=== PATIENT | male | born 1945 | race Caucasian/White ===

== ENCOUNTER 2016-05-03 02:09 | Inpatient (IN) | payer OTHER ==
[~2016-05-03] VITALS: Ht 180.3 cm; Wt 129.3 kg
[~2016-05-03 02:09] MED LIST: ALLOPURINOL100 MG PO; ASPIR-LOW81 MG PO; ASPIRIN325 MG PO; ATORVASTATIN CA80 MG PO; CALCITRIOL0.25 MCG PO; CHLORTHALIDONE25 MG PO; CLONIDINE HCL0.1 MG PO; EFFIENT10 MG PO; HYGROTON25 MG PO; INDOCIN50 MG PO; LANTUS 3 M100 UNITS1 SC; MUCOMYST 20200 MG/ML PO; NOVOLOG 10100 UNITS/ SC; NOVOLOG PE100 UNITS/ SC; OMEPRAZOLE20 MG PO; TELMISARTAN80 MG PO; TOPROL XL100 MG PO; VITAMIN D-32000 UNI2 PO
[2016-05-03] MEDS ORDERED: VITAMIN D2000 UNI1 PO (02:41)
[2016-05-03] MEDS ORDERED: RANEXA1000 MG PO (02:42)
[2016-05-03] MEDS ORDERED: OLMESARTAN-HCT1 EAC2 PO (02:42)
[2016-05-03] MEDS ORDERED: LORAZEPAM0.5 MG PO (02:44)
[2016-05-03 03:17] LABS: HEMATOCRIT 33.5 % (38.0-50.0); MCH 28.1 PG (29.0-34.0); MCHC 33.1 G/DL (30.0-36.0); MCV 84.8 FL (86-99); MEAN PLAT.VOLUME 9.7 uM^3 (9.0-12.4); PLATELET COUNT 150 K/uL (156-360); RBC DIS.WIDTH-CV 12.9 % (11.8-14.6); RBC DIS.WIDTH-SD 38.9 % (39-53); RED BLOOD COUNT 3.95 M/uL (4.00-5.50); WHITE BLOOD COUNT 3.5 K/uL (4.1-10.2)
[2016-05-03 03:28] LABS: CHLORIDE 106 mEq/L (99-109)
[2016-05-03 03:29] LABS: POTASSIUM 3.8 mEq/L (3.7-5.4); SODIUM 139 mEq/L (136-147)
[2016-05-03 03:30] LABS: GLUCOSE 346 mg/dL (70-99)
[2016-05-03 03:31] LABS: D-DIMER ELISA 0.31 mg/L FEU (< 0.57); PROTHROMBIN TIME 10.2 (9.2-11.2); PTT 25.1 (25-32)
[2016-05-03 03:32] LABS: ANION GAP 13 MEQ/L (2-14)
[2016-05-03 03:34] LABS: GFR ESTIMATE (CALCULATED) 40 mL/min/
[2016-05-03 03:35] LABS: UREA NITROGEN (BUN) 28 mg/dL (9-23)
[2016-05-03 03:38] LABS: TROP-I INTERPRETATION NEGATIVE; TROPONIN-I 0.01 ng/mL (0.0-0.30)
[2016-05-03 10:23] LABS: TROP-I INTERPRETATION INDETERMINATE; TROPONIN-I 0.37 ng/mL (0.0-0.30)
[2016-05-03 11:12] LABS: ANION GAP 9 MEQ/L (2-14); CHLORIDE 105 MEQ/L (99-109); GFR ESTIMATE (CALCULATED) 45 mL/min/; GLUCOSE 199 mg/dL (70-99); POTASSIUM 4.2 MEQ/L (3.7-5.4); SAMPLE HEMOLYSIS CHECK 0; SAMPLE ICTERIC CHECK 0; SAMPLE LIPEMIA CHECK 0; SODIUM 142 MEQ/L (136-147); UREA NITROGEN (BUN) 26 mg/dL (9-23)
[2016-05-03 12:19] LABS: PROTHROMBIN TIME 10.6 (9.2-11.2); PTT 24.8 (25-32)
[2016-05-03 12:52] VITALS: BP 125/80
[2016-05-03 12:59] LABS: POINT-OF-CARE METER ID UU14162513
[2016-05-03 16:09] LABS: TROP-I INTERPRETATION INDETERMINATE; TROPONIN-I 0.52 ng/mL (0.0-0.30)
[2016-05-03 17:04] VITALS: BP 174/78
[2016-05-03 17:46] LABS: POINT-OF-CARE METER ID UU14162513
[2016-05-03 20:00] VITALS: BP 160/82
[2016-05-03 20:22] LABS: TROP-I INTERPRETATION INDETERMINATE; TROPONIN-I 0.43 ng/mL (0.0-0.30)
[2016-05-03 21:57] LABS: POINT-OF-CARE METER ID UU14162513
[2016-05-04] VITALS (10 sets, daily range): BP systolic 144–223; BP diastolic 54–98
[2016-05-04 03:01] LABS: TROP-I INTERPRETATION NEGATIVE; TROPONIN-I 0.24 ng/mL (0.0-0.30)
[2016-05-04 08:03] LABS: POINT-OF-CARE METER ID UU13113696; POINT-OF-CARE USER ID AHSHCPRMS
[2016-05-04 08:04] LABS: INTERNAL CONTROL VALID? YES
[2016-05-04 21:34] LABS: POINT-OF-CARE METER ID UU13113698
[2016-05-05 04:00] VITALS: BP 171/74
[2016-05-05 06:18] LABS: ANION GAP 8 MEQ/L (2-14); CHLORIDE 104 MEQ/L (99-109); GFR ESTIMATE (CALCULATED) 42 mL/min/; GLUCOSE 120 mg/dL (70-99); SAMPLE HEMOLYSIS CHECK 0; SAMPLE ICTERIC CHECK 0; SAMPLE LIPEMIA CHECK 0; SODIUM 138 MEQ/L (136-147); UREA NITROGEN (BUN) 26 mg/dL (9-23)
[2016-05-05 06:22] LABS: EOSINOPHIL (%) 1.1 % (0-5); EOSINOPHIL COUNT 0.1 K/uL (0-0.3); HEMATOCRIT 32.3 % (38.0-50.0); IMMATURE GRANULOCYTE (%) 1.9 % (0.0-0.7); IMMATURE GRANULOCYTE COUNT 0.1 K/uL; LYMPHOCYTE COUNT 0.7 K/uL (1.0-2.8); MCH 27.9 PG (29.0-34.0); MCHC 32.8 G/DL (30.0-36.0); MEAN PLAT.VOLUME 9.8 uM^3 (9.0-12.4); MONOCYTE (%) 8.2 % (3-12); MONOCYTE COUNT 0.4 K/uL (0-0.8); NEUTROPHIL (%) 75.8 % (45-76); PLATELET COUNT 161 K/uL (156-360); RBC DIS.WIDTH-CV 13.2 % (11.8-14.6); RBC DIS.WIDTH-SD 40.6 % (39-53)
[2016-05-05 06:48] LABS: WHITE BLOOD COUNT 5.2 K/uL (4.1-10.2)
[2016-05-05 07:14] VITALS: BP 160/90
[2016-05-05 12:00] VITALS: BP 170/70
[2016-05-05] MEDS ORDERED: BRILINTA90 MG PO (13:58)
[2016-05-05] MEDS ORDERED: ASPIR-LOW81 MG PO (13:58)
== END 2016-05-05 15:24 | disposition home or self-care (01) | DRG 228 ==
LOC: EME → EDBD 02:09 → EME 02:09 → EDOF 05:31 → 5WEST 07:16 → 4EAST 11:13 → 5WEST 11:13 → 4EAST 23:48
PROVIDERS: Emergency Medicine; Family Medicine; Hospitalist; Internal Medicine
DX: T82.867A Thrombosis due to cardiac prosthetic devices, implants and grafts, initial encounter (principal); I21.4 Non-ST elevation (NSTEMI) myocardial infarction; D61.818 Other pancytopenia; N17.9 Acute kidney failure, unspecified; J98.11 Atelectasis; Z68.41 Body mass index [BMI] 40.0-44.9, adult; D72.819 Decreased white blood cell count, unspecified; E66.01 Morbid (severe) obesity due to excess calories; E78.5 Hyperlipidemia, unspecified; Z87.891 Personal history of nicotine dependence; I13.10 Hypertensive heart and chronic kidney disease without heart failure, with stage 1 through stage 4 chronic kidney disease, or unspecified chronic kidney disease; N18.9 Chronic kidney disease, unspecified; I25.118 Atherosclerotic heart disease of native coronary artery with other forms of angina pectoris; E11.22 Type 2 diabetes mellitus with diabetic chronic kidney disease; Y83.2 Surgical operation with anastomosis, bypass or graft as the cause of abnormal reaction of the patient, or of later complication, without mention of misadventure at the time of the procedure
CPT/HCPCS: 71020; 80048; 80048 91; 82948; 83605; 83880; 84484; 85025; 85027; 85347; 85379; 85610; 85730; 87040; 87449; 93005; 99281; 99284; C1725; C1760; C1769; C1874; C1887; C1894; J0360; J1644; J1815; J1956; J2060; J2250; J2405; J3010; J7030

== ENCOUNTER 2016-08-10 23:04 | Emergency (ER) | payer OTHER ==
[~2016-08-10] VITALS: Ht 180.3 cm; Wt 124.5 kg
[~2016-08-10 23:04] MED LIST changes: +BRILINTA90 MG PO; +LORAZEPAM0.5 MG PO; +OLMESARTAN-HCT1 EAC2 PO; +RANEXA1000 MG PO; +VITAMIN D2000 UNI1 PO
[2016-08-10 23:24] VITALS: BP 196/75
[2016-08-10 23:52] LABS: HEMATOCRIT 32.4 % (38.0-50.0); MCH 27.7 PG (29.0-34.0); MCHC 32.7 G/DL (30.0-36.0); MCV 84.6 FL (86-99); MEAN PLAT.VOLUME 10.3 uM^3 (9.0-12.4); PLATELET COUNT 174 K/uL (156-360); RBC DIS.WIDTH-CV 12.8 % (11.8-14.6); RED BLOOD COUNT 3.83 M/uL (4.00-5.50)
[2016-08-11 00:14] LABS: TROP-I INTERPRETATION NEGATIVE; TROPONIN-I 0.03 ng/mL (0.0-0.30)
[2016-08-11 00:26] LABS: CHLORIDE 107 mEq/L (99-109); POTASSIUM 4.6 mEq/L (3.7-5.4)
[2016-08-11 00:27] LABS: SODIUM 139 mEq/L (136-147)
[2016-08-11 00:28] LABS: GLUCOSE 381 mg/dL (70-99)
[2016-08-11 00:30] LABS: ANION GAP 8 MEQ/L (2-14)
[2016-08-11 00:32] LABS: GFR ESTIMATE (CALCULATED) 35 mL/min/
[2016-08-11 00:52] LABS: UREA NITROGEN (BUN) 44 mg/dL (9-23)
== END 2016-08-11 01:15 | disposition left against medical advice (07) ==
LOC: EME 23:04
DX: R07.9 Chest pain, unspecified (principal); Z53.21 Procedure and treatment not carried out due to patient leaving prior to being seen by health care provider
CPT/HCPCS: 71020; 80048; 84484; 85027; 93005

== ENCOUNTER 2016-08-13 01:52 | Observation (INO) | payer OTHER ==
[~2016-08-13] VITALS: Ht 180.3 cm; Wt 122.5 kg
[2016-08-13] MEDS ORDERED: CLONIDINE HCL0.1 MG PO (02:29)
[2016-08-13] MEDS ORDERED: LABETALOL HCL200 MG PO (02:31)
[2016-08-13 03:07] LABS: HEMATOCRIT 28.5 % (38.0-50.0); MCH 28.1 PG (29.0-34.0); MCV 85.1 FL (86-99); MEAN PLAT.VOLUME 10.4 uM^3 (9.0-12.4); PLATELET COUNT 145 K/uL (156-360); RBC DIS.WIDTH-CV 13.1 % (11.8-14.6); RBC DIS.WIDTH-SD 40.1 % (39-53); RED BLOOD COUNT 3.35 M/uL (4.00-5.50); WHITE BLOOD COUNT 4.1 K/uL (4.1-10.2)
[2016-08-13 03:15] LABS: PTT 23.1 (25-32)
[2016-08-13 03:19] LABS: CHLORIDE 109 mEq/L (99-109); POTASSIUM 3.8 mEq/L (3.7-5.4); SODIUM 139 mEq/L (136-147)
[2016-08-13 03:21] LABS: GLUCOSE 280 mg/dL (70-99)
[2016-08-13 03:22] LABS: ANION GAP 10 MEQ/L (2-14)
[2016-08-13 03:25] LABS: GFR ESTIMATE (CALCULATED) 31 mL/min/; TROP-I INTERPRETATION NEGATIVE; TROPONIN-I 0.03 ng/mL (0.0-0.30); UREA NITROGEN (BUN) 48 mg/dL (9-23)
[2016-08-13 05:14] VITALS: BP 149/68
[2016-08-13 08:20] VITALS: BP 155/70
[2016-08-13 11:18] VITALS: BP 155/73
[2016-08-13 13:03] LABS: HEMATOCRIT 28.7 % (38.0-50.0); MCH 28.5 PG (29.0-34.0); MCHC 33.1 G/DL (30.0-36.0); MCV 86.2 FL (86-99); MEAN PLAT.VOLUME 10.1 uM^3 (9.0-12.4); PLATELET COUNT 147 K/uL (156-360); RBC DIS.WIDTH-CV 13.1 % (11.8-14.6); RBC DIS.WIDTH-SD 40.6 % (39-53); RED BLOOD COUNT 3.33 M/uL (4.00-5.50); WHITE BLOOD COUNT 3.8 K/uL (4.1-10.2)
[2016-08-13 13:26] LABS: ALKALINE PHOSPHATASE 88 IU/L (3-129); ANION GAP 10 MEQ/L (2-14); CHLORIDE 107 MEQ/L (99-109); GFR ESTIMATE (CALCULATED) 40 mL/min/; GLUCOSE 199 mg/dL (70-99); POTASSIUM 4.2 MEQ/L (3.7-5.4); SAMPLE HEMOLYSIS CHECK 0; SAMPLE ICTERIC CHECK 0; SAMPLE LIPEMIA CHECK 0; SODIUM 139 MEQ/L (136-147); TOTAL BILIRUBIN 0.3 MG/DL (0.0-1.0); UREA NITROGEN (BUN) 47 mg/dL (9-23)
[2016-08-13 13:41] LABS: TROP-I INTERPRETATION NEGATIVE; TROPONIN-I 0.15 ng/mL (0.0-0.30)
[2016-08-13 15:26] VITALS: BP 160/70
[2016-08-13 18:29] LABS: TROP-I INTERPRETATION NEGATIVE; TROPONIN-I 0.14 ng/mL (0.0-0.30)
[2016-08-13] MEDS ORDERED: HUMALOG100 UNIT/2 SC (19:09)
[2016-08-13] MEDS ORDERED: ATIVAN0.5 MG PO (19:13)
[2016-08-13] MEDS ORDERED: LOW DOSE ASPIRI81 M1 PO (19:14)
[2016-08-13 19:15] VITALS: BP 217/94
[2016-08-13] MEDS ORDERED: NITROSTAT0.4 MG SL (19:15)
[2016-08-13 21:38] LABS: POINT-OF-CARE METER ID UU14162513
[2016-08-14 00:02] VITALS: BP 175/72
[2016-08-14 03:53] VITALS: BP 150/63
[2016-08-14 05:39] LABS: EOSINOPHIL (%) 2.2 % (0-5); EOSINOPHIL COUNT 0.1 K/uL (0-0.3); HEMATOCRIT 28.7 % (38.0-50.0); IMMATURE GRANULOCYTE (%) 1.9 % (0.0-0.7); IMMATURE GRANULOCYTE COUNT 0.1 K/uL; INSTRUMENT ABS NEUTROPHIL CT 2.5 K/uL; LYMPHOCYTE COUNT 0.7 K/uL (1.0-2.8); MCH 27.8 PG (29.0-34.0); MCHC 32.4 G/DL (30.0-36.0); MCV 85.7 FL (86-99); MEAN PLAT.VOLUME 10.2 uM^3 (9.0-12.4); MONOCYTE (%) 10.1 % (3-12); MONOCYTE COUNT 0.4 K/uL (0-0.8); NEUTROPHIL (%) 67.1 % (45-76); NEUTROPHIL COUNT 2.5 K/uL (1.8-6.4); PLATELET COUNT 140 K/uL (156-360); RBC DIS.WIDTH-CV 13.2 % (11.8-14.6); RBC DIS.WIDTH-SD 40.9 % (39-53); RED BLOOD COUNT 3.35 M/uL (4.00-5.50); WHITE BLOOD COUNT 3.7 K/uL (4.1-10.2)
[2016-08-14 06:12] LABS: ANION GAP 9 MEQ/L (2-14); CHLORIDE 109 MEQ/L (99-109); GFR ESTIMATE (CALCULATED) 42 mL/min/; GLUCOSE 175 mg/dL (70-99); SAMPLE HEMOLYSIS CHECK 0; SAMPLE ICTERIC CHECK 0; SAMPLE LIPEMIA CHECK 0; SODIUM 140 MEQ/L (136-147); UREA NITROGEN (BUN) 41 mg/dL (9-23)
[2016-08-14 07:35] VITALS: BP 187/77
[2016-08-14 09:27] LABS: TROP-I INTERPRETATION NEGATIVE; TROPONIN-I 0.08 ng/mL (0.0-0.30)
== END 2016-08-14 11:10 | disposition home or self-care (01) ==
LOC: EME 01:52 → EDOF 04:15 → 5WEST 04:15
PROVIDERS: Emergency Medicine; Internal Medicine
DX: R07.9 Chest pain, unspecified (principal); I25.10 Atherosclerotic heart disease of native coronary artery without angina pectoris; I10 Essential (primary) hypertension; N28.9 Disorder of kidney and ureter, unspecified; E11.8 Type 2 diabetes mellitus with unspecified complications; Z95.1 Presence of aortocoronary bypass graft; Z95.5 Presence of coronary angioplasty implant and graft; E78.00 Pure hypercholesterolemia, unspecified; Z79.4 Long term (current) use of insulin; Z88.8 Allergy status to other drugs, medicaments and biological substances
CPT/HCPCS: 71020; 80048; 80053; 82948; 84484; 85025; 85027; 85610; 85730; 93005; 99281; 99285; G0378; J0360; J1644; J1815; J7030

== ENCOUNTER 2016-09-08 10:39 | Emergency (ER) | payer OTHER ==
[~2016-09-08] VITALS: Ht 180.3 cm; Wt 124.6 kg
[~2016-09-08 10:39] MED LIST changes: +ATIVAN0.5 MG PO; +HUMALOG100 UNIT/2 SC; +LABETALOL HCL200 MG PO; +LOW DOSE ASPIRI81 M1 PO; +NITROSTAT0.4 MG SL
[2016-09-08 11:36] LABS: ADD MIUA? YES; BILIRUBIN NEGATIVE; BLOOD NEGATIVE; COLOR YELLOW ((YELLOW)); GLUCOSE (STRIP) NEGATIVE; KETONES 5; LEUKOCYTES NEGATIVE; NITRITE NEGATIVE; PROTEIN (STRIP) >=500; SPECIFIC GRAVITY 1.016 (1.000-1.030); UROBILINOGEN 0.2 MG/DL (0.2-1.0)
[2016-09-08 11:40] LABS: BACTERIA RARE /HPF; EPITHELIAL CELLS RARE /HPF; HYALINE CASTS 0-5 /LPF; MUCUS TRACE /LPF; RED BLOOD CELLS 0-5 /HPF (0-5); UCUL ADDED? NO; UNCLASSIFIED CASTS 0-5 /LPF; WHITE BLOOD CELLS 0-5 /HPF (0-5)
[2016-09-08 11:47] LABS: EOSINOPHIL (%) 2.9 % (0-5); EOSINOPHIL COUNT 0.2 K/uL (0-0.3); IMMATURE GRANULOCYTE (%) 1.9 % (0.0-0.7); IMMATURE GRANULOCYTE COUNT 0.1 K/uL; INSTRUMENT ABS NEUTROPHIL CT 3.8 K/uL; LYMPHOCYTE COUNT 0.7 K/uL (1.0-2.8); MCH 27.9 PG (29.0-34.0); MCHC 32.7 G/DL (30.0-36.0); MCV 85.5 FL (86-99); MONOCYTE (%) 6.6 % (3-12); MONOCYTE COUNT 0.3 K/uL (0-0.8); NEUTROPHIL (%) 73.8 % (45-76); NEUTROPHIL COUNT 3.8 K/uL (1.8-6.4); PLATELET COUNT 148 K/uL (156-360); RBC DIS.WIDTH-CV 13.3 % (11.8-14.6); RBC DIS.WIDTH-SD 40.2 % (39-53); RED BLOOD COUNT 3.51 M/uL (4.00-5.50); WHITE BLOOD COUNT 5.1 K/uL (4.1-10.2)
[2016-09-08 11:59] LABS: CHLORIDE 110 mEq/L (99-109); POTASSIUM 4.2 mEq/L (3.7-5.4); SODIUM 141 mEq/L (136-147)
[2016-09-08 12:01] LABS: GLUCOSE 155 mg/dL (70-99)
[2016-09-08 12:02] LABS: ANION GAP 10 MEQ/L (2-14)
[2016-09-08 12:03] LABS: TOTAL BILIRUBIN 0.4 mg/dL (0.0-1.0)
[2016-09-08 12:04] LABS: ALKALINE PHOSPHATASE 112 IU/L (3-129)
[2016-09-08 12:05] LABS: GFR ESTIMATE (CALCULATED) 42 mL/min/
[2016-09-08 12:06] LABS: UREA NITROGEN (BUN) 27 mg/dL (9-23)
[2016-09-08 12:08] LABS: LIPASE 25 U/L (1.0-51.0)
[2016-09-08] MEDS ORDERED: FLAGYL500 MG PO (13:11)
[2016-09-08] MEDS ORDERED: CIPRO500 MG PO (13:11)
[2016-09-08 13:33] VITALS: BP 165/71
== END 2016-09-08 13:33 | disposition home or self-care (01) ==
LOC: EME 10:39
PROVIDERS: Physician Assistant
DX: K57.32 Diverticulitis of large intestine without perforation or abscess without bleeding (principal); E11.9 Type 2 diabetes mellitus without complications; I25.2 Old myocardial infarction; I10 Essential (primary) hypertension; K21.9 Gastro-esophageal reflux disease without esophagitis; F41.9 Anxiety disorder, unspecified; Z85.528 Personal history of other malignant neoplasm of kidney; Z95.1 Presence of aortocoronary bypass graft; Z87.891 Personal history of nicotine dependence; Z79.4 Long term (current) use of insulin
CPT/HCPCS: 74176; 80053; 81003; 83605; 83690; 85025; 87177; 87493; 99281; 99285; J3010; J7120

== ENCOUNTER 2016-10-08 20:56 | Inpatient (IN) | payer OTHER ==
[~2016-10-08] VITALS: Ht 180.3 cm; Wt 122.0 kg
[~2016-10-08 20:56] MED LIST changes: +CIPRO500 MG PO; +FLAGYL500 MG PO
[2016-10-08 21:16] LABS: HEMATOCRIT 29.4 % (38.0-50.0); MCH 27.8 PG (29.0-34.0); MCHC 32.3 G/DL (30.0-36.0); MEAN PLAT.VOLUME 9.4 uM^3 (9.0-12.4); PLATELET COUNT 154 K/uL (156-360); RBC DIS.WIDTH-CV 13.1 % (11.8-14.6); RBC DIS.WIDTH-SD 40.2 % (39-53); RED BLOOD COUNT 3.42 M/uL (4.00-5.50)
[2016-10-08 21:21] LABS: PROTHROMBIN TIME 10.7 SEC (10.2-12.9)
[2016-10-08 21:24] LABS: CHLORIDE 109 mEq/L (99-109); POTASSIUM 3.7 mEq/L (3.7-5.4); PTT 27.1 SEC (25-37); SODIUM 141 mEq/L (136-147)
[2016-10-08 21:26] LABS: GLUCOSE 194 mg/dL (70-99)
[2016-10-08 21:27] LABS: ANION GAP 8 MEQ/L (2-14)
[2016-10-08 21:30] LABS: GFR ESTIMATE (CALCULATED) 40 mL/min/
[2016-10-08 21:31] LABS: UREA NITROGEN (BUN) 29 mg/dL (9-23)
[2016-10-08 21:38] LABS: TROP-I INTERPRETATION NEGATIVE; TROPONIN-I 0.02 ng/mL (0.0-0.30)
[2016-10-08] MEDS ORDERED: HUMALOG100 UNIT/2 SC (22:27)
[2016-10-08] MEDS ORDERED: VITAMIN B-12500 MC5 PO (22:28)
[2016-10-09] VITALS (7 sets, daily range): BP systolic 17–193; BP diastolic 72–89
[2016-10-09 05:44] LABS: TROP-I INTERPRETATION NEGATIVE; TROPONIN-I 0.02 ng/mL (0.0-0.30)
[2016-10-09 05:51] LABS: HEMATOCRIT 28.4 % (38.0-50.0); MCH 27.7 PG (29.0-34.0); MCV 86.6 FL (86-99); MEAN PLAT.VOLUME 9.9 uM^3 (9.0-12.4); PLATELET COUNT 158 K/uL (156-360); RBC DIS.WIDTH-SD 40.9 % (39-53); RED BLOOD COUNT 3.28 M/uL (4.00-5.50)
[2016-10-09 06:11] LABS: ALKALINE PHOSPHATASE 76 IU/L (3-129); ANION GAP 10 MEQ/L (2-14); CHLORIDE 110 MEQ/L (99-109); GFR ESTIMATE (CALCULATED) 42 mL/min/; GLUCOSE 154 mg/dL (70-99); POTASSIUM 3.8 MEQ/L (3.7-5.4); SAMPLE HEMOLYSIS CHECK 0; SAMPLE ICTERIC CHECK 0; SAMPLE LIPEMIA CHECK 0; SODIUM 144 MEQ/L (136-147); TOTAL BILIRUBIN 0.3 MG/DL (0.0-1.0); UREA NITROGEN (BUN) 30 mg/dL (9-23)
[2016-10-09 11:19] LABS: TROP-I INTERPRETATION NEGATIVE; TROPONIN-I 0.02 ng/mL (0.0-0.30)
[2016-10-09 12:35] LABS: POINT-OF-CARE METER ID UU13113831
[2016-10-10 00:04] LABS: POINT-OF-CARE METER ID UU13113700
[2016-10-10 07:47] VITALS: BP 185/72
[2016-10-10 14:14] LABS: POINT-OF-CARE METER ID UU13113819
[2016-10-10 18:50] LABS: ANION GAP 9 MEQ/L (2-14); CHLORIDE 105 MEQ/L (99-109); GFR ESTIMATE (CALCULATED) 53 mL/min/; GLUCOSE 181 mg/dL (70-99); POTASSIUM 4.1 MEQ/L (3.7-5.4); SAMPLE HEMOLYSIS CHECK 0; SAMPLE ICTERIC CHECK 0; SAMPLE LIPEMIA CHECK 0; SODIUM 137 MEQ/L (136-147); UREA NITROGEN (BUN) 25 mg/dL (9-23)
[2016-10-10 21:40] VITALS: BP 154/68
[2016-10-10 22:40] VITALS: BP 170/66
[2016-10-11 00:15] VITALS: BP 142/62
[2016-10-11 00:16] LABS: POINT-OF-CARE METER ID UU13113698
[2016-10-11 04:30] VITALS: BP 132/56
[2016-10-11 04:51] LABS: CHLORIDE 108 mEq/L (99-109); POTASSIUM 4.3 mEq/L (3.7-5.4); SODIUM 137 mEq/L (136-147)
[2016-10-11 04:52] LABS: GLUCOSE 192 mg/dL (70-99)
[2016-10-11 04:54] LABS: ANION GAP 8 MEQ/L (2-14)
[2016-10-11 04:56] LABS: GFR ESTIMATE (CALCULATED) 42 mL/min/
[2016-10-11 04:57] LABS: UREA NITROGEN (BUN) 26 mg/dL (9-23)
[2016-10-11 05:42] VITALS: BP 142/63
[2016-10-11 06:10] LABS: POINT-OF-CARE METER ID UU13113781
[2016-10-11 07:40] LABS: POINT-OF-CARE METER ID UU14174216
[2016-10-11 08:34] VITALS: BP 151/67
== END 2016-10-11 11:15 | disposition short-term general hospital (02) | DRG 253 ==
LOC: EME 20:56 → EDOF 22:59 → ENRESERV 23:00 → 5WEST 10-09 00:23 → CANRESERV 10-09 10:13 → ENRESERV 10-09 10:13 → 5WEST 10-10 11:09 → ENRESERV 10-10 14:46 → 4EAST 10-10 21:26
PROVIDERS: Emergency Medicine; Hospitalist; Internal Medicine
DX: I25.110 Atherosclerotic heart disease of native coronary artery with unstable angina pectoris (principal); E78.5 Hyperlipidemia, unspecified; E11.22 Type 2 diabetes mellitus with diabetic chronic kidney disease; I25.82 Chronic total occlusion of coronary artery; I13.10 Hypertensive heart and chronic kidney disease without heart failure, with stage 1 through stage 4 chronic kidney disease, or unspecified chronic kidney disease; K21.9 Gastro-esophageal reflux disease without esophagitis; D61.818 Other pancytopenia; N18.2 Chronic kidney disease, stage 2 (mild); F41.9 Anxiety disorder, unspecified; E66.9 Obesity, unspecified; M06.9 Rheumatoid arthritis, unspecified; Z95.5 Presence of coronary angioplasty implant and graft; Z95.1 Presence of aortocoronary bypass graft; Z90.5 Acquired absence of kidney; Z85.528 Personal history of other malignant neoplasm of kidney; Z68.37 Body mass index [BMI] 37.0-37.9, adult; Z87.891 Personal history of nicotine dependence; Z79.899 Other long term (current) drug therapy; Z79.82 Long term (current) use of aspirin; I25.2 Old myocardial infarction; Z79.4 Long term (current) use of insulin
CPT/HCPCS: 71020; 80048; 80053; 82948; 84484; 85027; 85347; 85610; 85730; 87493; 93005; 99281; 99284; C1769; C1887; C1894; G0378; J0153; J0360; J1644; J1815; J2250; J2270; J2405; J3010; J7030; J7040; J7050

== ENCOUNTER 2017-03-02 12:17 | Day surgery (SDC) | payer OTHER ==
[~2017-03-02] VITALS: Ht 180.3 cm; Wt 120.0 kg
[~2017-03-02 12:17] MED LIST changes: +AMIODARONE HCL200 MG PO; +ELIQUIS5 MG PO; +FUROSEMIDE40 MG PO; +LOPRESSOR50 MG PO; +VITAMIN B-12500 MC5 PO
== END 2017-03-02 15:12 | disposition home or self-care (01) ==
LOC: CATH 12:17
PROVIDERS: Internal Medicine Cardiovascular Disease
DX: I48.91 Unspecified atrial fibrillation (principal); Z79.01 Long term (current) use of anticoagulants; I25.10 Atherosclerotic heart disease of native coronary artery without angina pectoris; Z95.1 Presence of aortocoronary bypass graft; Z95.5 Presence of coronary angioplasty implant and graft; I10 Essential (primary) hypertension; E78.5 Hyperlipidemia, unspecified; Z90.5 Acquired absence of kidney; E11.9 Type 2 diabetes mellitus without complications; Z85.528 Personal history of other malignant neoplasm of kidney; Z79.4 Long term (current) use of insulin
CPT/HCPCS: 82948; 93312; J2250